=== PATIENT | male | born 1985 | race Two or more races ===

== ENCOUNTER 2024-09-29 10:30 | Outpatient (REF) | payer OTHER, SELFPAY ==
--- NOTE | ~2024-09-29 | US_ITS ---
EXAMINATION: US ABDOMEN LIMITED HISTORY: LUMPS FELT RT MID LT MID ABDOMEN TECHNIQUE: Real-time grayscale ultrasound imaging of the right and left anterior, wall was performed and images were reviewed. COMPARISON: There are no prior studies for comparison. FINDINGS: There are multiple hyperechoic foci within the subcutaneous fat of the anterior abdominal wall bilaterally. On the right these measure up to 4.1 x 2.1 x 1.0 cm. On the left, these measure up to 3 x 2 x 2 mm. These may represent lipomas or areas of fat necrosis. US/US abdomen limited IMPRESSION: Multiple hyperechoic foci within the subcutaneous fat of the anterior abdominal wall bilaterally which may represent lipomas or areas of fat necrosis. Electronically signed by: Ramakrishna Dill MD 09/29/2024 11:41 AM EDT
== END 2024-09-29 10:31 | disposition home or self-care (01) ==
LOC: HO.US 10:30
PROVIDERS: Visit Provider Physician Assistant Medical
DX: R19.03 Right lower quadrant abdominal swelling, mass and lump (principal)
CPT/HCPCS: 76705

== ENCOUNTER → 2024-09-29 11:04 | Outpatient (BNV) | payer OTHER, SELFPAY | PROVIDERS: Visit Provider Radiology Diagnostic Radiology | DX: D17.5 Benign lipomatous neoplasm of intra-abdominal organs (principal) | CPT/HCPCS: 76705 ==

== ENCOUNTER 2024-11-03 09:14 | Outpatient (REF) | payer OTHER, SELFPAY ==
--- NOTE | ~2024-11-03 | US_ITS ---
EXAMINATION: MM DIAGNOSTIC DIGITAL BREAST TOMOSYNTHESIS, BILATERAL Limited left breast ultrasound. CLINICAL INFORMATION: Left palpable lump anterior depth retroareolar region. COMPARISON: Mammography: Baseline. TECHNIQUE: Digital breast mammography with tomosynthesis is performed in both the craniocaudal and mediolateral oblique views along with computer-aided detection (CAD). FINDINGS: Right: There are no significant masses, abnormal calcifications, or other abnormalities. Left: BB marker at the nipple with bowel underlying abnormality. No suspicious calcifications masses or other abnormal findings. Targeted color Doppler ultrasound scanning in the area of the patient's palpable lump demonstrates an oval parallel subdermal hyperechoic solid mass probable lipoma with trace internal flow and a few internal hypoechoic areas at 8:00 1 cm from the nipple measuring 17 x 22 x 8 mm. This correlates with the patient's palpable lump. Results are provided to the patient at time of visit by the technologist. US/US breast LT limited mamm only IMPRESSION: Right: Negative. Left: Probable lipoma in site of the patient's palpable lump in the left breast 8:00 1 cm from the nipple. Recommend 6 month follow-up ultrasound for further evaluation of stability. ASSESSMENT: BI-RADS BI-RADS 3 - Probably benign finding(s) - 6 month follow-up suggested RECOMMENDATION: 6 Month F/U Electronically signed by: Lyudmila Adams DO 11/03/2024 10:37 AM EDT
== END 2024-11-03 09:15 | disposition home or self-care (01) ==
LOC: HO.MAMMO 09:14
PROVIDERS: Visit Provider Physician Assistant Medical
DX: N63.25 Unspecified lump in the left breast, overlapping quadrants (principal)
CPT/HCPCS: 76642; 77062; 77066

== ENCOUNTER → 2024-11-03 09:30 | Outpatient (BNV) | payer OTHER, SELFPAY | PROVIDERS: Visit Provider Internal Medicine | DX: N63.20 Unspecified lump in the left breast, unspecified quadrant (principal) | CPT/HCPCS: 76642; 77062; 77066 ==